=== PATIENT | female | born 2000 | race Hispanic/Latino ===

== ENCOUNTER 2025-06-30 15:52 | Emergency (ER) | payer SELFPAY ==
[~2025-06-30] VITALS: Ht 160 cm; Wt 92.1 kg
[2025-06-30 17:31] LABS: IMMATURE GRANULOCYTE ABSOLUTE 0.03 K/uL (0-1); NUCLEATED RED BLOOD CELLS 0.0 % (0.0-0.19); PLATELET COUNT (AUTO) 247 K/uL (130-400); RED BLOOD CELL COUNT(AUTO) 4.31 MIL/uL (4.00-5.50); RED CELL DISTRIBUTION WIDTH 12.9 % (11.0-15.5); WHITE BLOOD COUNT (AUTO) 9.1 K/uL (4.8-10.8)
--- NOTE | 2025-06-30 17:35 | HMCIMG ---
EXAM: Obstetric ultrasound limited transabdominal INDICATION: Vaginal bleeding TECHNIQUE: Transabdominal recio scale and color doppler flow images of the pelvis REFERENCE EXAMINATION: None FINDINGS: Single intrauterine gestation is identified. Gestational sac measures 2.7 mm corresponding to estimated gestational age of 5 weeks. No pole identified. Cervix is closed. Amniotic fluid is adequate. Placenta is nonvisualized. Uterus measures 9.1 x 6.0 x 4.9 cm. Ovaries measure 1.9 x 1.3 x 1.7 cm on the right and measuring 3.7 x 1.7 x 2.4 cm on the left. Adequate color flow was documented bilaterally. Left ovarian cyst. No fluid in the cul-de-sac. IMPRESSION: Gestational sac measuring at 5 weeks. No pole identified at this time. /[place]
[2025-06-30 17:38] LABS: CREATININE 0.5 mg/dL (0.5-1.0); GLOMERULAR FILTR. RATE CALC 133.0 mL/min (>90); GLUCOSE,RANDOM 83.0 mg/dL (70-105); SODIUM SERUM 139.0 mmol/L (136-145); UREA NITROGEN, BLOOD 11.0 mg/dL (7-18)
[2025-06-30 17:49] LABS: HCG,QUANTITATIVE 231.0 mIU/mL (0-5)
[2025-06-30 19:06] LABS: APPEARANCE,URINE CLOUDY (CLEAR); GLUCOSE, URINE (UA) NEGATIVE (NEGATIVE); LEUKOCYTE ESTERASE ,URINE 75 Leu/uL (NEGATIVE); NITRATE,URINE NEGATIVE (NEGATIVE); OCCULT BLOOD,URINE LARGE (NEGATIVE)
[2025-06-30 19:08] LABS: ADD UA MICROSCOPIC YES
[2025-06-30 19:11] LABS: NON-SQUAMOUS EPITHELIAL CELL 1 /HPF (0-2); SQUAMOUS EPITHELIAL CELL,UR FEW /HPF (0-2); UNCLASSIFIED CRYSTAL 3 /HPF (None Seen)
--- NOTE | 2025-06-30 19:29 | ERN ---
ED Note History of Present Illness Stated Complaint: VAGINAL BLEEDING, 7 WEEKS Chief Complaint: Vaginal Bleeding Time Seen by MD: 15:59 Time Seen by Midlevel: 16:03 Dictation: 24-year-old female with no past medical history coming in with complaining of vaginal bleeding onset 06/28/2025. Patient states her last menstrual period was in April. [facility] Patient states her vaginal bleeding is period Like. No clots. . Allergies: Coded Allergies: No Known Allergies (Unverified Allergy, Unknown, 06/30/25) Past Medical History Past Medical History: No Pertinent History Surgical History: None LMP: May 07, 2025 : 1 Para: 0 Aborts: 0 Review of System Dictation Constitutional: Negative for fever,chills, and weight loss Eyes: Negative for injury, pain,redness, and discharge ENT: Negative for injury,pain or swelling Cardiovascular: Negative for chest pain, palpitations, and edema Respiratory: Negative for shortness of breath, cough, and wheezing, Abdomen/GI: Negative for abdominal pain, nausea, vomiting, diarrhea, and constipation Back: Negative for injury and pain : Complaining of vaginal bleeding MS/Extremity: Negative for injury and deformity Skin: Negative for rash, and discoloration Neuro: Negative for headache, weakness, numbness, tingling, and seizure Psych: Negative for suicide ideation, homicidal ideation, and hallucinations Review of Systems: was completed Initial Vital Sign VS Vital Signs Date Time Temp Pulse Resp B/P (MAP) Pulse Ox O2 Delivery O2 Flow Rate FiO2 06/30/25 15:54 98.1 103 16 133/76 96 Room Air 0 Physical Exam Dictation General: awake, alert, NAD Head/Face: Normocephalic, atraumatic Eyes: PERRL, EOMI, vision at baseline ENT: oral cavity clear, TMs clear, no signs of infection Neck: Trachea midline, supple, no nuchal rigidity Cardiovascular: RRR, normal S1/S2, No MRGs, no JVD Respiratory: CTAB, no respiratory distress, No rales or wheezes Abdomen: Soft, non-tender, non-distended, normal bowel sounds, no guarding or rebound. Skin: Warm, dry, normal turgor, no rash MS/Extremity: Pulses equal, no cyanosis, neurovascular intact, FROM Neuro: COAx4, GCS 15, strength 5/5, CN 2-12 intact, normal cerebellar exam, normal gait, Psych: Normal behavior, mood, and affect normal Results (Laboratory/Radiology) Laboratory/Radiology Laboratory Tests Test 06/30/25 17:23 06/30/25 18:44 White Blood Count 9.1 K/uL (4.8-10.8) Red Blood Count 4.31 MIL/uL (4.00-5.50) Hemoglobin 13.0 g/dL (12.0-16.0) Hematocrit 37.7 % (36-48) Mean Corpuscular Volume 87.5 fL (79-99) Mean Corpuscular Hemoglobin 30.2 pg (27.0-33.0) Mean Corpuscular Hemoglobin Concent 34.5 g/dL (32.0-36.0) Red Cell Distribution Width 12.9 % (11.0-15.5) Platelet Count 247 K/uL (130-400) Mean Platelet Volume 11.2 fL (7.5-10.5) H Immature Granulocyte % (Auto) 0.3 % (0-1) Neutrophils (%) (Auto) 70.3 % (40.0-77.0) Lymphocytes (%) (Auto) 22.5 % (21.0-51.0) Monocytes (%) (Auto) 4.6 % (3.0-13.0) Eosinophils (%) (Auto) 1.8 % (0.0-8.0) Basophils (%) (Auto) 0.5 % (0.0-5.0) Neutrophils # (Auto) 6.4 K/uL (1.8-7.7) Lymphocytes # (Auto) 2.1 K/uL (1.0-4.8) Monocytes # (Auto) 0.4 K/uL (0.1-1.0) Eosinophils # (Auto) 0.16 K/uL (0.00-0.70) Basophils # (Auto) 0.05 K/uL (0.00-0.20) Absolute Immature Granulocyte (auto 0.03 K/uL (0-1) Nucleated Red Blood Cells 0.0 % (0.0-0.19) Sodium Level 139 mmol/L (136-145) Potassium Level 3.7 mmol/L (3.5-5.1) Chloride Level 104 mmol/L (101-111) Carbon Dioxide Level 27 mmol/L (21-32) Blood Urea Nitrogen 11 mg/dL (7-18) Creatinine 0.5 mg/dL (0.5-1.0) Glomerular Filtration Rate Calc 133 mL/min (>90) Random Glucose 83 mg/dL (70-105) Total Calcium 8.4 mg/dL (8.5-10.1) L Human Chorionic Gonadotropin, Quant 231 mIU/mL (0-5) H Urine Color YELLOW (YELLOW) Urine Appearance CLOUDY (CLEAR) H Urine pH 5.5 (5.0-8.0) Urine Specific [place] 1.030 (1.001-1.031) Urine Protein 70 mg/dL (NEGATIVE) H Urine Glucose (UA) NEGATIVE mg/dL (NEGATIVE) Urine Ketones 60 mg/dL (NEGATIVE) H Urine Occult Blood LARGE (NEGATIVE) H Urine Nitrate NEGATIVE (NEGATIVE) Urine Bilirubin NEGATIVE mg/dL (NEGATIVE) Urine Urobilinogen 0.2 mg/dL (0.2-1.0) Urine Leukocyte Esterase 75 Kevin/uL (NEGATIVE) H Urine RBC 51-100 /HPF (0-1) H Urine WBC 11-25 /HPF (0-1) H Urine Squamous Epithelial Cells FEW /HPF (0-2) Urine Non-Squamous Epithelial Cells 1 /HPF (0-2) Urine Other Crystals (Auto) 3 /HPF (None Seen) Urine Bacteria RARE /HPF (None Seen) Labs Reviewed?: Yes Ultrasound Comment: [address] [address] IMAGING REPORT Signed PATIENT: LOS KLEIN MR#: [id number] : 2000 SEX: F AGE: 24 LOCATION: [facility] ORDER 1600 STATUS: REG REPORT#: [id number] SERVICE [id number] REASON: VAGINAL BLEEDING, 7 WKS ORDERING PHYSICIAN: STEVE KILGORE NP PROCEDURE: OB <14 - US OB <14 WEEKS EXAM: Obstetric ultrasound limited transabdominal INDICATION: Vaginal bleeding TECHNIQUE: Transabdominal recio scale and color doppler flow images of the pelvis REFERENCE EXAMINATION: None FINDINGS: Single intrauterine gestation is identified. Gestational sac measures 2.7 mm corresponding to estimated gestational age of 5 weeks. No pole identified. Cervix is closed. Amniotic fluid is adequate. Placenta is nonvisualized. Uterus measures 9.1 x 6.0 x 4.9 cm. Ovaries measure 1.9 x 1.3 x 1.7 cm on the right and measuring 3.7 x 1.7 x 2.4 cm on the left. Adequate color flow was documented bilaterally. Left ovarian cyst. No fluid in the cul-de-sac. IMPRESSION: Gestational sac measuring at 5 weeks. No pole identified at this time. /[place] DICTATED BY: AMELIA PARDO MD DATE: 06/30/251833 ELECTRONICALLY SIGNED BY: AMELIA PARDO MD DATE: 06/30/251833 ED Course ED Course Orders Procedure Category Date Status Time Cbc With Differential LAB 06/30/25 Complete 15:59 Basic Metabolic Panel LAB 06/30/25 Complete 15:59 Hcg,Quantitative LAB 06/30/25 Complete 15:59 Urinalysis Profile LAB 06/30/25 Complete 15:59 Us Ob <14 Weeks US 06/30/25 Resulted 15:59 Culture Urine JERRY 06/30/25 Logged 19:08 Vital Signs Date Time Temp Pulse Resp B/P (MAP) Pulse Ox O2 Delivery O2 Flow Rate FiO2 06/30/25 15:54 98.1 103 16 133/76 96 Room Air 0 Medical Decision Making MDM MDM: 24-year-old female with no past medical history coming in with complaining of vaginal bleeding onset 06/28/2025. Patient states her last menstrual period was in April. [facility] Patient states her vaginal bleeding is period Like. No clots. .CBC shows no leukocytosis, no anemia, no thrombocytopenia. Chemistry unremarkable. HCG quantitative is 231. UA shows no evidence of urinary tract infection. Ultrasound shows gestational sac measuring five weeks, no pole. Discussed findings with the patient. Discussed with the patient this could lead to a miscarriage in his to follow up outpatient with OBGYN. Educated patient she will need serial ultrasounds and serial HCG levels. Patient verbalized understanding. Patient states she sees her OBGYN on 07/14/2025. Educated to call and see if they can see her sooner. Differential diagnosis: Ectopic , threatened , Rationale: Tests considered and ordered secondary to shared decision making include: Previous outside records reviewed: Old ER visits. Risk of complication and/or morbidity or mortality of patient management: None Medications-Per medication reconciliation Need for hospitalization: Patient does not meet criteria for hospitalization. Need for emergency major/minor surgery: No There are no social concerns with this patient. Prescription drug management Prescriptions will include symptomatic care Patient's prior external medical records from other ER visits were reviewed by me as indicated. Prior testing and results from previous visits were reviewed. Prior tests were taken into account with medical decision making and resource utilization, independent historian/historians were used to obtain complete medical history. I independently interpreted the test that were performed, results were reviewed by me and considered findings on radiology if ordered. Medical management and examination interpretation discussions were had by me with other qualified healthcare professionals as indicated for the patient's care. DX & DISP Disposition: Discharge Departure Impression: Primary Impression: Vaginal bleeding affecting early Additional Impressions: Threatened miscarriage, Threatened miscarriage in early Condition: Stable Additional Instructions: Pelvic rest. Follow up with the OBGYN in 1-2 days. Return to the hospital if you have any emergency. Referrals: SELF,REFERRAL (PCP) Time of Disposition: 19:29 I have reviewed the case, and I agree with, Diagnosis and Plan STEVE KILGORE NP Jun 30, 2025 19:29
[2025-06-30 19:48] VITALS: BP 127/70; PULSE 88; RESP 16; TEMP 98; O2SAT 96
== END 2025-06-30 19:52 | disposition home or self-care (01) ==
LOC: EDH 15:52
DX: O20.0 Threatened abortion (principal); Z3A.01 Less than 8 weeks gestation of pregnancy
CPT/HCPCS: 36415; 76801; 80048; 81001; 84702; 85025; 87086; 99284